=== PATIENT | male | born 1975 | race African-American/Black ===

== ENCOUNTER 2016-07-05 11:27 | Emergency (ER) | payer MEDICAID ==
[~2016-07-05] VITALS: Ht 177.8 cm; Wt 80.0 kg
[2016-07-05] MEDS ORDERED: LORAZEPAM 1MG TABLET PO ONE (12:00)
[2016-07-05 12:01] VITALS: BP 154/96
[2016-07-05 13:19] LABS: *AMPHETAMINES SCREEN URINE NEGATIVE (NEGATIVE); *BARBITURATES SCREEN URINE NEGATIVE (NEGATIVE); *BENZODIAZEPINES SCREEN URINE NEGATIVE (NEGATIVE); *COCAINE SCREEN URINE PRESUMTIVE POSITIVE (NEGATIVE); CANNABINOID URINE SCREEN PRESUMTIVE POSITIVE (NEGATIVE); ECSTASY MDMA SCREEN URINE NEGATIVE (NEGATIVE); METHADONE URINE SCREEN NEGATIVE (NEGATIVE); OPIATES URINE SCREEN NEGATIVE (NEGATIVE); PHENCYCLIDINE URINE SCREEN PRESUMTIVE POSITIVE (NEGATIVE)
== END 2016-07-05 13:53 | disposition home or self-care (01) ==
LOC: ER 11:56
DX: F41.0 Panic disorder [episodic paroxysmal anxiety] (principal); F14.10 Cocaine abuse, uncomplicated; F12.10 Cannabis abuse, uncomplicated; F16.10 Hallucinogen abuse, uncomplicated
CPT/HCPCS: 80305; 99283

== ENCOUNTER 2016-09-15 01:17 | Emergency (ER) | payer MEDICAID ==
[~2016-09-15] VITALS: Ht 182.9 cm; Wt 90.0 kg
[2016-09-15 01:22] VITALS: BP 130/86
== END 2016-09-15 03:00 | disposition left against medical advice (07) ==
LOC: ER 01:17
DX: Z53.21 Procedure and treatment not carried out due to patient leaving prior to being seen by health care provider (principal)

== ENCOUNTER 2019-06-21 14:27 | Emergency (ER) | payer SELFPAY ==
[~2019-06-21] VITALS: Ht 175.3 cm; Wt 68.0 kg
[2019-06-21] MEDS ORDERED: HALOPERIDOL LACTATE 5MG/ML VIAL IM STA (14:55)
[2019-06-21] MEDS ORDERED: LORAZEPAM 2MG/ML CPJ IM ONE (15:00)
[2019-06-21 15:25] LABS: BASOPHILS % 0.5 % (0.0-2.0); EOSINOPHILS % 0.4 % (0.0-5.0); HEMATOCRIT. 39.3 % (42.0-52.0); HEMOGLOBIN. 13.3 g/dL (14.0-18.0); LYMPHOCYTES % 9.2 % (20.0-50.0); MEAN CORPUSCULAR HEMOGLOBIN 32.1 pg (28.0-32.0); MEAN CORPUSCULAR VOLUME 94.7 fL (80.0-94.0); MONOCYTES % 6.1 % (2.0-8.0); NEUTROPHILS % 83.8 % (40.0-76.0); PLATELET 177 x1000/uL (130-400); RED BLOOD CELL COUNT 4.15 mill/uL (4.7-6.1); RED CELL DISTRIBUTION WIDTH 13.3 % (11.6-14.6)
[2019-06-21 15:31] LABS: CHLORIDE 110 mEq/L (98-107)
[2019-06-21 15:35] LABS: ETHANOL BLOOD < 10 mg/dL
[2019-06-21 17:19] LABS: *BARBITURATES SCREEN URINE NEGATIVE (NEGATIVE)
[2019-06-21 17:20] LABS: *BENZODIAZEPINES SCREEN URINE PRESUMTIVE POSITIVE (NEGATIVE); *COCAINE SCREEN URINE NEGATIVE (NEGATIVE); CANNABINOID URINE SCREEN PRESUMTIVE POSITIVE (NEGATIVE); METHADONE URINE SCREEN NEGATIVE (NEGATIVE); OPIATES URINE SCREEN NEGATIVE (NEGATIVE); PHENCYCLIDINE URINE SCREEN PRESUMTIVE POSITIVE (NEGATIVE)
[2019-06-21 17:21] LABS: *AMPHETAMINES SCREEN URINE NEGATIVE (NEGATIVE)
[2019-06-22 01:38] VITALS: BP 137/85
== END 2019-06-22 01:41 | disposition home or self-care (01) ==
LOC: ER 14:43
DX: F23 Brief psychotic disorder (principal); F13.10 Sedative, hypnotic or anxiolytic abuse, uncomplicated; F16.10 Hallucinogen abuse, uncomplicated; F12.10 Cannabis abuse, uncomplicated; R45.1 Restlessness and agitation; N28.9 Disorder of kidney and ureter, unspecified; F32.9 Major depressive disorder, single episode, unspecified; F41.9 Anxiety disorder, unspecified; Z78.1 Physical restraint status
CPT/HCPCS: 36415; 71045; 80053; 80305; 80320; 85025; 96372; 99285; J1630; J2060; G0480